=== PATIENT | female | born 1960 | race African-American/Black ===

== ENCOUNTER 2018-11-26 09:13 | Observation (INO) ==
[2018-11-26] MEDS ORDERED: ONDANSETRON 4 MG/2 ML VIAL IV STA (09:39)
[2018-11-26] MEDS ORDERED: HYDROmorphone 2 MG/1 ML VIAL IV STA (09:39)
[2018-11-26] MEDS ORDERED: KETOROLAC 30 MG/1 ML VIAL IV STA (09:39)
[2018-11-26] MEDS ORDERED: SODIUM CHLORIDE 0.9% 500 ML IV STA (09:39)
[2018-11-26 10:48] LABS: Basophils % 0.5 % (0.0-0.8); Hematocrit 27.2 VOL% (35.7-47.0); Hemoglobin 8.8 GM/DL (12.0-16.0); Immature Granulocytes % 0.3 %; Immature Granulocytes Absolute 0.02 #; Lymphocytes # 1.9 10*3/uL (1.4-4.0); Lymphocytes % 32.5 % (21.3-54.2); Mean Corpuscular HGB Conc 32.4 GM/DL (32-36); Mean Corpuscular Hemoglobin 30 PG (27-34); Mean Corpuscular Volume 92.2 FL (87-102); Monocytes # 0.5 10*3/uL (0.11-0.8); Monocytes % 8.7 % (1.7-12.7); Neutrophils # 3.3 10*3/uL (1.4-7.4); Platelet Count 161 T/CUMM (130-400); Red Blood Count 2.95 MC/CUMM (3.8-5.5); Red Cell Distribution Width 14.1 % (9.3-17.3); White Blood Count 5.8 T/CUMM (4-12)
[2018-11-26 11:09] LABS: Albumin 1.5 G/DL (3.4-5.0); Bilirubin,Total 0.4 MG/DL (0.2-1.0); Calcium 7.9 MG/DL (8.5-10.1); Potassium 4.6 MMOL/L (3.5-5.1); Total Protein 6.8 G/DL (6.4-8.3)
[2018-11-26 12:45] LABS: Apearance,Urine CLOUDY (Clear); Bilirubin,Urine Negative (Negative); Blood, Urine Large mg/dL (Negative); Glucose,Urine (UA) 50 mg/dL (Negative); Ketones,Urine Negative (Negative); Mucus,Urine Many /LPF (Occasional); Nitrite,Urine Positive (Negative); Protein,Urine 100 MG/DL; RBC,Urine 4161 /HPF (0-4); Squamous Epithelial Cell,Urine Few /HPF (0-10); Urine Color Red (Yellow); Urine Specific Gravity 1.016 (1.001-1.035); Urine Urobilinogen < 2.0 EU/DL (0.2-1.0); WBC,Urine 327 /HPF (0-6)
[2018-11-26] MEDS ORDERED: MEROPENEM 1,000 MG in SODIUM CHLORIDE 0.9% 100 ML IV STA (12:53)
[2018-11-26] MEDS ORDERED: PROMETHAZINE 25 MG/1 ML VIAL IM PRN (13:37)
[2018-11-26] MEDS ORDERED: ACETAMINOPHEN 325 MG TABLET PO PRN (13:37)
[2018-11-26] MEDS ORDERED: oxyCODONE IR 5 MG TABLET PO PRN (13:41)
[2018-11-26] MEDS ORDERED: LACTATED RINGERS 1,000 ML IV SCH (14:00)
[2018-11-26] MEDS: HYDROmorphone 2 MG/1 ML VIAL IV PRN ×2 (17:11→21:20)
[2018-11-26] MEDS: cefTRIAXone 1,000 MG in SYRINGE 1 EACH IV SCH (17:16)
[2018-11-26] MEDS: PANTOPRAZOLE 40 MG TABLET PO SCH (17:17)
[2018-11-26] MEDS: ENOXAPARIN 40 MG/0.4 ML SYRINGE SUBCUT SCH (17:18)
[2018-11-26] MEDS: METHEN/SOD PHOS/METH BLUE/HYOS TABLET PO SCH ×2 (17:42→20:44)
[2018-11-26] MEDS ORDERED: ONDANSETRON 4 MG/2 ML VIAL IV PRN (18:06)
[2018-11-27] MEDS: HYDROmorphone 2 MG/1 ML VIAL IV PRN ×4 (01:50→18:08)
[2018-11-27] MEDS: HEPARIN LOCK FLUSH 500 UNIT/5 ML SYRINGE IV PRN (03:52)
[2018-11-27 04:32] LABS: Basophils % 0.5 % (0.0-0.8); Hematocrit 27.8 VOL% (35.7-47.0); Hemoglobin 8.8 GM/DL (12.0-16.0); Immature Granulocytes % 0.3 %; Immature Granulocytes Absolute 0.02 #; Lymphocytes % 40.6 % (21.3-54.2); Mean Corpuscular HGB Conc 31.7 GM/DL (32-36); Mean Corpuscular Hemoglobin 30 PG (27-34); Mean Corpuscular Volume 94.6 FL (87-102); Mean Platelet Volume 9.6 FL (9.6-12.0); Monocytes # 0.6 10*3/uL (0.11-0.8); Monocytes % 7.7 % (1.7-12.7); Neutrophils # 3.8 10*3/uL (1.4-7.4); Neutrophils % 50.9 % (38.7-73.9); Platelet Count 191 T/CUMM (130-400); Red Blood Count 2.94 MC/CUMM (3.8-5.5); Red Cell Distribution Width 14.2 % (9.3-17.3); White Blood Count 7.4 T/CUMM (4-12)
[2018-11-27 04:59] LABS: Albumin 1.6 G/DL (3.4-5.0); Bilirubin,Total 0.9 MG/DL (0.2-1.0); Calcium 7.5 MG/DL (8.5-10.1); Osmolality,Calculated 271.8 MOS/KG (273-304); Potassium 4.4 MMOL/L (3.5-5.1); Total Protein 6.6 G/DL (6.4-8.3)
[2018-11-27] MEDS: PANTOPRAZOLE 40 MG TABLET PO SCH (08:03)
[2018-11-27] MEDS: METHEN/SOD PHOS/METH BLUE/HYOS TABLET PO SCH ×4 (08:03→20:55)
[2018-11-27] MEDS ORDERED: fentaNYL 100 MCG/HR PATCH TRANSDERM SCH (09:30)
[2018-11-27] MEDS ORDERED: SIMETHICONE CHEW 80 MG TABLET PO PRN (10:09)
[2018-11-27] MEDS ORDERED: SODIUM CHLORIDE 0.9% 1,000 ML IV ONE (11:00)
[2018-11-27] MEDS: DOCUSATE SODIUM 100 MG CAPSULE PO SCH ×2 (12:38→20:55)
[2018-11-27] MEDS: POLYETHYLENE GLYCOL POWDER 17 GM PACK PO SCH ×2 (12:38→20:55)
[2018-11-27] MEDS: ENOXAPARIN 40 MG/0.4 ML SYRINGE SUBCUT SCH (15:40)
[2018-11-27] MEDS: SODIUM CHLORIDE 0.9% 1,000 ML IV SCH (15:40)
[2018-11-27] MEDS: cefTRIAXone 1,000 MG in SYRINGE 1 EACH IV SCH (16:48)
[2018-11-28] MEDS: SODIUM CHLORIDE 0.9% 1,000 ML IV SCH (01:35)
[2018-11-28] MEDS: HYDROmorphone 2 MG/1 ML VIAL IV PRN ×2 (01:36→08:35)
[2018-11-28] MEDS: DOCUSATE SODIUM 100 MG CAPSULE PO SCH (10:02)
[2018-11-28] MEDS: PANTOPRAZOLE 40 MG TABLET PO SCH (10:02)
[2018-11-28] MEDS: METHEN/SOD PHOS/METH BLUE/HYOS TABLET PO SCH (10:02)
[2018-11-28] MEDS: POLYETHYLENE GLYCOL POWDER 17 GM PACK PO SCH (10:02)
[2018-11-28 11:55] VITALS: BP 107/65
[2018-11-28] MEDS: HEPARIN LOCK FLUSH 500 UNIT/5 ML SYRINGE IV PRN (12:06)
[2018-11-29] MEDS ORDERED: fentaNYL 75 MCG/HR PATCH TRANSDERM SCH (09:00)
== END 2018-11-28 13:19 | disposition home or self-care (01) ==
LOC: N.EDINP 09:13 → N.ED 09:13 → SUATTDRO 13:37 → N.4E 14:53
PROVIDERS: ADMIT Internal Medicine; ATTEND Hospitalist

== ENCOUNTER 2018-12-19 16:09 | Inpatient (IN) ==
[2018-12-19] MEDS ORDERED: SODIUM CHLORIDE 0.9% 1,000 ML IV STA (16:47)
[2018-12-19] MEDS ORDERED: ONDANSETRON 4 MG/2 ML VIAL IV STA (16:47)
[2018-12-19 17:46] LABS: Basophils % 0.4 % (0.0-0.8); Hematocrit 25.6 VOL% (35.7-47.0); Hemoglobin 8.1 GM/DL (12.0-16.0); Immature Granulocytes % 0.5 %; Immature Granulocytes Absolute 0.04 #; Lymphocytes # 1.5 10*3/uL (1.4-4.0); Lymphocytes % 17.9 % (21.3-54.2); Mean Corpuscular HGB Conc 31.6 GM/DL (32-36); Mean Corpuscular Hemoglobin 29 PG (27-34); Mean Corpuscular Volume 92.4 FL (87-102); Mean Platelet Volume 9.6 FL (9.6-12.0); Monocytes # 0.9 10*3/uL (0.11-0.8); Monocytes % 11.1 % (1.7-12.7); Neutrophils # 5.9 10*3/uL (1.4-7.4); Neutrophils % 70.1 % (38.7-73.9); Platelet Count 179 T/CUMM (130-400); Red Blood Count 2.77 MC/CUMM (3.8-5.5); White Blood Count 8.4 T/CUMM (4-12)
[2018-12-19 17:49] LABS: Apearance,Urine CLOUDY (Clear); Bilirubin,Urine Negative (Negative); Blood, Urine Negative (Negative); Glucose,Urine (UA) Negative (Negative); Ketones,Urine 20 mg/dL (Negative); Mucus,Urine Moderate /LPF (Occasional); Nitrite,Urine Negative (Negative); Protein,Urine Negative; RBC,Urine 2 /HPF (0-4); Squamous Epithelial Cell,Urine Occasional /HPF (0-10); Urine Color Yellow (Yellow); Urine Specific Gravity 1.019 (1.001-1.035); Urine Urobilinogen < 2.0 EU/DL (0.2-1.0); WBC,Urine 2 /HPF (0-6)
[2018-12-19 18:07] LABS: Alanine Aminotransferase < 9 U/L (13-56); Albumin 1.5 G/DL (3.4-5.0); Alkaline Phosphatase 101 U/L (45-117); Amylase 16 U/L (25-115); Aspartate Amino Transferase 17 U/L (0-37); Bilirubin,Total < 0.39 MG/DL (0.2-1.0); Blood Urea Nitrogen 10 MG/DL (7-18); Calcium 7.5 MG/DL (8.5-10.1); Glucose 79 MG/DL (74-106); Osmolality,Calculated 272.7 MOS/KG (273-304); Potassium 3.6 MMOL/L (3.5-5.1); Sodium 138 MMOL/L (136-145); Total Protein 6.8 G/DL (6.4-8.3)
[2018-12-19] MEDS ORDERED: ONDANSETRON 4 MG/2 ML VIAL IV PRN (21:54)
[2018-12-19] MEDS ORDERED: ACETAMINOPHEN 325 MG TABLET PO PRN (21:54)
[2018-12-19] MEDS ORDERED: MORPHINE 4 MG/1 ML VIAL IV PRN (21:54)
[2018-12-19] MEDS ORDERED: SODIUM CHLORIDE 0.9% 1,000 ML IV PRN ×2 (22:56→23:56)
[2018-12-19] MEDS ORDERED: LEVOFLOXACIN INJ 500 MG in PREMIX 1 EACH IV SCH (23:00)
[2018-12-19] MEDS: SODIUM CHLORIDE 0.9% 1,000 ML IV SCH (23:01)
[2018-12-19] MEDS: metroNIDAZOLE INJ 500 MG in PREMIX 1 EACH IV SCH (23:20)
[2018-12-20 00:43] LABS: Basophils % 0.3 % (0.0-0.8); Hematocrit 26.2 VOL% (35.7-47.0); Hemoglobin 8.3 GM/DL (12.0-16.0); Immature Granulocytes % 0.5 %; Immature Granulocytes Absolute 0.05 #; Lymphocytes # 1.5 10*3/uL (1.4-4.0); Lymphocytes % 15.8 % (21.3-54.2); Mean Corpuscular HGB Conc 31.7 GM/DL (32-36); Mean Corpuscular Hemoglobin 29 PG (27-34); Mean Corpuscular Volume 92.6 FL (87-102); Mean Platelet Volume 9.3 FL (9.6-12.0); Monocytes % 10.2 % (1.7-12.7); Neutrophils % 73.2 % (38.7-73.9); Platelet Count 184 T/CUMM (130-400); Red Blood Count 2.83 MC/CUMM (3.8-5.5); White Blood Count 9.6 T/CUMM (4-12)
[2018-12-20 00:50] LABS: Calcium 7.4 MG/DL (8.5-10.1); Osmolality,Calculated 274.5 MOS/KG (273-304); Potassium 3.7 MMOL/L (3.5-5.1)
[2018-12-20] MEDS: MORPHINE 4 MG/1 ML VIAL IV PRN ×3 (02:36→18:38)
[2018-12-20] MEDS: fentaNYL 100 MCG/HR PATCH TRANSDERM SCH (04:15)
[2018-12-20] MEDS ORDERED: ENOXAPARIN 80 MG/0.8 ML SYRINGE SUBCUT SCH (04:30)
[2018-12-20] MEDS: metroNIDAZOLE INJ 500 MG in PREMIX 1 EACH IV SCH (09:00)
[2018-12-20] MEDS: PANTOPRAZOLE 40 MG TABLET PO SCH (09:01)
[2018-12-20] MEDS ORDERED: SIMETHICONE CHEW 80 MG TABLET PO PRN (10:58)
[2018-12-20] MEDS ORDERED: HEPARIN DRIP 25,000 UNITS/500 ML PREMIX IV SCH (11:00)
[2018-12-20] MEDS: VANCOMYCIN 50 MG/ML 60 ML/BOTTLE PO SCH ×3 (12:11→23:00)
[2018-12-20] MEDS: SODIUM CHLORIDE 0.9% 1,000 ML IV SCH ×3 (13:45→19:50)
[2018-12-20] MEDS ORDERED: GLUCAGON 1 MG VIAL IM PRN (13:53)
[2018-12-20] MEDS ORDERED: DEXTROSE 50% 25 GM/50 ML VIAL IV PRN (13:53)
[2018-12-20 14:48] LABS: Hematocrit 34.5 VOL% (35.7-47.0)
[2018-12-20 14:49] LABS: Hemoglobin 11.2 GM/DL (12.0-16.0)
[2018-12-20] MEDS: CHOLESTYRAMINE 4 GM PACK PO SCH ×2 (15:34→20:34)
[2018-12-20] MEDS: INSULIN LISPRO 100 UNIT/ML SUBCUT SCH ×2 (16:13→20:36)
[2018-12-20] MEDS ORDERED: SODIUM CHLORIDE 0.9% 2,100 ML IV ONE (17:38)
[2018-12-20] MEDS ORDERED: WARFARIN 5 MG TABLET PO SCH (18:00)
[2018-12-20 18:31] LABS: INR 1.2; PT Patient Result 13.5 SECS
[2018-12-20] MEDS: DOCUSATE SODIUM 100 MG CAPSULE PO SCH (20:36)
[2018-12-20] MEDS ORDERED: POLYETHYLENE GLYCOL POWDER 17 GM PACK PO SCH (21:00)
[2018-12-21 00:48] LABS: INR 1.2; PT Patient Result 12.7 SECS
[2018-12-21 00:50] LABS: Basophils % 0.2 % (0.0-0.8); Hematocrit 33.7 VOL% (35.7-47.0); Hemoglobin 11.3 GM/DL (12.0-16.0); Immature Granulocytes % 1.1 %; Immature Granulocytes Absolute 0.13 #; Lymphocytes # 2.2 10*3/uL (1.4-4.0); Mean Corpuscular HGB Conc 33.5 GM/DL (32-36); Mean Corpuscular Hemoglobin 30 PG (27-34); Mean Corpuscular Volume 89.2 FL (87-102); Mean Platelet Volume 9.8 FL (9.6-12.0); Monocytes # 0.7 10*3/uL (0.11-0.8); Monocytes % 5.9 % (1.7-12.7); Neutrophils # 9.1 10*3/uL (1.4-7.4); Neutrophils % 74.8 % (38.7-73.9); Platelet Count 163 T/CUMM (130-400); Red Blood Count 3.78 MC/CUMM (3.8-5.5); Red Cell Distribution Width 17.4 % (9.3-17.3); White Blood Count 12.2 T/CUMM (4-12)
[2018-12-21 01:00] LABS: Osmolality,Calculated 273.8 MOS/KG (273-304); Potassium 4.1 MMOL/L (3.5-5.1)
[2018-12-21] MEDS: SODIUM CHLORIDE 0.9% 1,000 ML IV SCH ×2 (03:11→21:02)
[2018-12-21] MEDS: VANCOMYCIN 50 MG/ML 60 ML/BOTTLE PO SCH ×4 (05:15→23:58)
[2018-12-21 05:35] LABS: INR 1.6; PT Patient Result 16.9 SECS
[2018-12-21] MEDS: INSULIN LISPRO 100 UNIT/ML SUBCUT SCH ×4 (08:42→21:18)
[2018-12-21] MEDS: DOCUSATE SODIUM 100 MG CAPSULE PO SCH ×2 (08:43→21:13)
[2018-12-21] MEDS: CHOLESTYRAMINE 4 GM PACK PO SCH ×2 (08:53→21:18)
[2018-12-21] MEDS: PANTOPRAZOLE 40 MG TABLET PO SCH (08:53)
[2018-12-21 10:58] LABS: Hematocrit 34.2 VOL% (35.7-47.0)
[2018-12-21 11:06] LABS: PT Patient Result 11.3 SECS; Partial Thromboplastin Time 29.3 SECS (0-40)
[2018-12-21 15:41] LABS: Hematocrit 31.6 VOL% (35.7-47.0)
[2018-12-21] MEDS ORDERED: SIMETHICONE CHEW 80 MG TABLET PO PRN (17:24)
[2018-12-21 22:52] LABS: Hematocrit 32.5 VOL% (35.7-47.0); Hemoglobin 10.3 GM/DL (12.0-16.0)
[2018-12-22 05:18] LABS: Basophils % 0.2 % (0.0-0.8); Hematocrit 32.1 VOL% (35.7-47.0); Hemoglobin 10.1 GM/DL (12.0-16.0); Immature Granulocytes Absolute 0.11 #; Lymphocytes # 1.7 10*3/uL (1.4-4.0); Lymphocytes % 15.4 % (21.3-54.2); Mean Corpuscular HGB Conc 31.5 GM/DL (32-36); Mean Corpuscular Hemoglobin 29 PG (27-34); Mean Corpuscular Volume 90.4 FL (87-102); Mean Platelet Volume 10.1 FL (9.6-12.0); Monocytes # 0.8 10*3/uL (0.11-0.8); Monocytes % 7.4 % (1.7-12.7); NRBC # 0.02 10*3/uL; Neutrophils # 8.4 10*3/uL (1.4-7.4); Platelet Count 160 T/CUMM (130-400); Red Blood Count 3.55 MC/CUMM (3.8-5.5); Red Cell Distribution Width 16.8 % (9.3-17.3)
[2018-12-22 05:26] LABS: Potassium 4.6 MMOL/L (3.5-5.1)
[2018-12-22] MEDS: VANCOMYCIN 50 MG/ML 60 ML/BOTTLE PO SCH ×3 (06:35→18:41)
[2018-12-22 07:39] LABS: Hematocrit 30.4 VOL% (35.7-47.0); Hemoglobin 9.7 GM/DL (12.0-16.0)
[2018-12-22] MEDS: PANTOPRAZOLE 40 MG TABLET PO SCH (09:56)
[2018-12-22] MEDS: CHOLESTYRAMINE 4 GM PACK PO SCH ×2 (09:57→21:31)
[2018-12-22] MEDS: DOCUSATE SODIUM 100 MG CAPSULE PO SCH ×2 (10:11→21:27)
[2018-12-22] MEDS: INSULIN LISPRO 100 UNIT/ML SUBCUT SCH ×4 (10:12→21:29)
[2018-12-22] MEDS: ALUMINUM/MAGNES/SIMETH MAX STR 30 ML UDCUP PO PRN (14:15)
[2018-12-22 15:10] LABS: Hematocrit 31.2 VOL% (35.7-47.0)
[2018-12-23] MEDS: VANCOMYCIN 50 MG/ML 60 ML/BOTTLE PO SCH ×6 (00:21→23:16)
[2018-12-23] MEDS: ALUMINUM/MAGNES/SIMETH MAX STR 30 ML UDCUP PO PRN ×4 (00:24→14:00)
[2018-12-23] MEDS: INSULIN LISPRO 100 UNIT/ML SUBCUT SCH ×4 (10:44→20:03)
[2018-12-23] MEDS: DOCUSATE SODIUM 100 MG CAPSULE PO SCH ×3 (10:44→20:28)
[2018-12-23] MEDS: PANTOPRAZOLE 40 MG TABLET PO SCH (10:45)
[2018-12-23] MEDS: CHOLESTYRAMINE 4 GM PACK PO SCH ×2 (10:46→20:26)
[2018-12-23] MEDS: fentaNYL 100 MCG/HR PATCH TRANSDERM SCH (10:46)
[2018-12-23] MEDS ORDERED: ZALEPLON 5 MG CAPSULE PO PRN (18:38)
[2018-12-24] MEDS: VANCOMYCIN 50 MG/ML 60 ML/BOTTLE PO SCH ×3 (05:29→18:39)
[2018-12-24] MEDS: DOCUSATE SODIUM 100 MG CAPSULE PO SCH ×2 (08:59→20:55)
[2018-12-24] MEDS: PANTOPRAZOLE 40 MG TABLET PO SCH (08:59)
[2018-12-24] MEDS: CHOLESTYRAMINE 4 GM PACK PO SCH (09:00)
[2018-12-24] MEDS: INSULIN LISPRO 100 UNIT/ML SUBCUT SCH ×4 (09:02→20:53)
[2018-12-24] MEDS ORDERED: BISACODYL 10 MG SUPP RECTAL ONE (10:29)
[2018-12-24] MEDS ORDERED: HYDROCORTISONE 25 MG SUPP RECTAL ONE (10:30)
[2018-12-24] MEDS ORDERED: METHYLNALTREXONE 12 MG/0.6 ML VIAL SUBCUT ONE (11:40)
[2018-12-24] MEDS ORDERED: BISACODYL 5 MG TABLET PO PRN (14:12)
[2018-12-24] MEDS ORDERED: POLYETHYLENE GLYCOL POWDER 17 GM PACK PO PRN (14:12)
[2018-12-25] MEDS: VANCOMYCIN 50 MG/ML 60 ML/BOTTLE PO SCH ×3 (01:03→14:43)
[2018-12-25] MEDS: INSULIN LISPRO 100 UNIT/ML SUBCUT SCH ×2 (09:20→12:34)
[2018-12-25] MEDS: PANTOPRAZOLE 40 MG TABLET PO SCH (10:48)
[2018-12-25] MEDS: DOCUSATE SODIUM 100 MG CAPSULE PO SCH (10:51)
[2018-12-25 12:12] VITALS: BP 90/67
== END 2018-12-25 14:40 | disposition hospice, home (50) | DRG 371 ==
LOC: EDUNIT# → EDBD → N.ED 16:09 → N.EDINP 20:41 → N.4E 21:28
PROVIDERS: ADMIT Internal Medicine; ATTEND Internal Medicine